=== PATIENT | male | born 2000 | race Caucasian/White ===

== ENCOUNTER 2020-08-20 16:44 | Emergency (ER) | payer MEDICAID ==
[2020-08-20] MEDS ORDERED: ONDANSETRON ODT 4 MG TABLET TL STA (17:04)
[2020-08-20 18:02] LABS: BASOPHILS % (AUTO) 0.2 %; EOSINOPHILS % (AUTO) 0.2 %; HCT - HEMATOCRIT 46.1 % (42.0-52.0); LYMPHOCYTES # (AUTO) 1.1 10^3/uL (1.5-3.5); LYMPHOCYTES % (AUTO) 8.9 %; MEAN CORPUSCULAR HEMOGLOBIN 30.1 pg (27.0-31.0); MEAN CORPUSCULAR HGB CONC 34.7 g/dL (32.0-36.0); MEAN CORPUSCULAR VOLUME 86.7 fL (80.0-94.0); MEAN PLATELET VOLUME 9.4 fL (7.4-11.4); MONOCYTES # (AUTO) 1.1 10^3/uL (0.0-1.0); NEUTROPHILS # (AUTO) 10.1 10^3/uL (1.5-6.6); NEUTROPHILS % (AUTO) 81.2 %; PLT - PLATELET COUNT 174 10^3/uL (130-450); RED BLOOD COUNT 5.32 10^6/uL (4.70-6.10); RED CELL DISTRIBUTION WIDTH 12.1 % (12.0-15.0); WHITE BLOOD COUNT 12.4 x10^3/uL (4.8-10.8)
[2020-08-20 18:14] LABS: ALBUMIN 4.4 g/dL (3.2-5.5); ALBUMIN/GLOBULIN RATIO 1.3 (1.0-2.2); BILIRUBIN,TOTAL 0.9 mg/dL (0.2-1.0); CALCIUM 8.9 mg/dL (8.5-10.3); CREATININE 1.1 mg/dL (0.6-1.2); POTASSIUM 3.9 mmol/L (3.5-5.0); TOTAL PROTEIN 7.7 g/dL (6.7-8.2)
[2020-08-20 18:50] LABS: BILIRUBIN,URINE NEGATIVE (NEGATIVE); GLUCOSE, URINE (UA) NEGATIVE (NEGATIVE); KETONES,URINE (UA) 40 mg/dL (NEGATIVE); LEUKOCYTE ESTERASE, URINE NEGATIVE (NEGATIVE); NITRITE,URINE NEGATIVE (NEGATIVE); OCCULT BLOOD,URINE NEGATIVE (NEGATIVE); PROTEIN,URINE TRACE mg/dL (NEGATIVE); UROBILINOGEN,URINE 0.2 (NORMAL) E.U./dL (NORMAL)
[2020-08-20 18:55] LABS: CLARITY,URINE CLEAR (CLEAR)
--- NOTE | 2020-08-20 21:06 | ED Physician Documentation ---
History of Present Illness - Stated complaint Stated Complaint: ABD PX,DRY HEAVING - Chief complaint Chief Complaint: Abd Pain - History obtained from History obtained from: Patient, Family - History of Present Illness Timing: Today Pain level max: 6 Pain level now: 1 - Additonal information Additional information: Patient is a 19-year-old male who presents to the emergency department with diarrhea since yesterday. He states that he had lower abdominal cramping today but nothing made it better or worse. Some nausea but no vomiting. No fevers. No chills. He states that he does not know if he has been around anyone else that has been sick recently. No recent travel. No bad food exposure that he is aware of. Review of Systems Constitutional: denies: Fever, Chills GI: reports: Diarrhea. denies: Vomiting Skin: denies: Rash Musculoskeletal: denies: Neck pain, Back pain Neurologic: denies: Headache PD PAST MEDICAL HISTORY - Past Medical History Past Medical History: No - Past Surgical History Past Surgical History: No - Present Medications Home Medications: Ambulatory Orders Medication Instructions Recorded Confirmed Ondansetron Odt [Zofran] 4 mg TL Q6H PRN #10 tablet 08/20/20 - Allergies Allergies/Adverse Reactions: Allergies Allergy/AdvReac Type Severity Reaction Status Date / Time No Known Drug Allergies Allergy Verified 08/20/20 17:28 - Living Situation Living Situation: reports: With family Living Arrangement: reports: At home - Social History Does the pt smoke?: No Does the pt drink ETOH?: No Does the pt have substance abuse?: No PD ED PE NORMAL - Vitals Vital signs reviewed: Yes - General General: Alert and oriented X 3, No acute distress, Well developed/nourished - HEENT HEENT: PERRL, Moist mucous membranes - Neck Neck: Supple, no meningeal sign - Cardiac Cardiac: RRR, Strong equal pulses - Respiratory Respiratory: No respiratory distress, Clear bilaterally - Abdomen Abdomen: Normal bowel sounds, Soft, Non tender, Non distended - Back Back: No spinal TTP - Derm Derm: Warm and dry - Extremities Extremities: No edema - Neuro Neuro: Alert and oriented X 3 - Psych Psych: Normal mood, Normal affect Results - Vitals Vitals: Vital Signs - 24 hr 08/20/20 08/20/20 08/20/20 17:24 18:33 20:55 Temperature 37.2 C 37.3 C Heart Rate 94 97 Respiratory 16 16 16 Rate Blood Pressure 128/62 118/70 O2 Saturation 100 100 08/20/20 21:13 Temperature Heart Rate 97 Respiratory 15 Rate Blood Pressure 124/86 H O2 Saturation 99 Oxygen O2 Source Room air - Labs Labs: Laboratory Tests 08/20/20 08/20/20 08/20/20 17:29 17:52 17:52 WBC 12.4 H RBC 5.32 Hgb 16.0 Hct 46.1 MCV 86.7 MCH 30.1 MCHC 34.7 RDW 12.1 Plt Count 174 MPV 9.4 Neut # (Auto) 10.1 H Lymph # (Auto) 1.1 L [place] # (Auto) 1.1 H Eos # (Auto) 0.0 Baso # (Auto) 0.0 Absolute Nucleated RBC 0.00 Nucleated RBC % 0.0 Sodium 133 L Potassium 3.9 Chloride 99 L Carbon Dioxide 26 Anion Gap 8.0 BUN 14 Creatinine 1.1 Estimated GFR (MDRD) 86 L Glucose 108 H Calcium 8.9 Total Bilirubin 0.9 AST 14 ALT 13 Alkaline Phosphatase 60 Total Protein 7.7 Albumin 4.4 Globulin 3.3 Albumin/Globulin Ratio 1.3 Lipase 23 Urine Color YELLOW Urine Clarity CLEAR Urine pH 6.0 Ur Specific [place] >=1.030 H Urine Protein TRACE Urine Glucose (UA) NEGATIVE Urine Ketones 40 H Urine Occult Blood NEGATIVE Urine Nitrite NEGATIVE Urine Bilirubin NEGATIVE Urine Urobilinogen 0.2 (NORMAL) Ur Leukocyte Esterase NEGATIVE Ur Microscopic Review NOT INDICATED Urine Culture Comments NOT INDICATED PD MEDICAL DECISION MAKING - ED course Complexity details: reviewed results, re-evaluated patient, considered differential, d/w patient ED course: No further diarrhea in the emergency department. Patient is very well- appearing, nontoxic. Afebrile. Abdomen is soft, nontender nondistended. Pain resolved in the emergency department. We will have him follow-up with his doctor for further care. Likely a viral diarrheal illness. Patient and family counseled regarding signs and symptoms for which I believe and urgent re- evaluation would be necessary. Patient with good understanding of and agreement to plan and is comfortable going home at this time This document was made in part using voice recognition software. While efforts are made to proofread this document, sound alike and grammatical errors may occur. Departure - Departure Disposition: 01 Home, Self Care Clinical Impression: Abdominal pain Qualifiers: Abdominal location: unspecified location Qualified Code(s): R10.9 - Unspecified abdominal pain Diarrhea Qualifiers: Diarrhea type: unspecified type Qualified Code(s): R19.7 - Diarrhea, unspecified Condition: Good Instructions: ED Diarrhea Viral, ED Diet Vomiting Diarrhea Follow-Up: your,doctor if not better in 1 week [Other] Prescriptions: Ondansetron Odt [Zofran] 4 mg TL Q6H PRN #10 tablet PRN Reason: Nausea / Vomiting Comments: Drink plenty of fluids. Return if you worsen. This should improve over the next 2-3 days. Forms: Activity restrictions Discharge Date/Time: 08/20/20 21:21
[2020-08-20 21:16] VITALS: BP 124/86
== END 2020-08-20 21:21 | disposition home or self-care (01) ==
LOC: ED 16:44
DX: R10.9 Unspecified abdominal pain (principal); R19.7 Diarrhea, unspecified
CPT/HCPCS: 36415; 80053; 81001; 81003; 83690; 85025; 87086; 99283; 99284

== ENCOUNTER 2020-08-22 11:10 | Emergency (ER) | payer MEDICAID ==
[2020-08-22 11:52] LABS: BASOPHILS % (AUTO) 0.2 %; EOSINOPHILS % (AUTO) 0.2 %; HCT - HEMATOCRIT 44.8 % (42.0-52.0); HGB - HEMOGLOBIN 15.6 g/dL (14.0-18.0); LYMPHOCYTES % (AUTO) 11.6 %; MEAN CORPUSCULAR HEMOGLOBIN 29.9 pg (27.0-31.0); MEAN CORPUSCULAR HGB CONC 34.8 g/dL (32.0-36.0); MEAN PLATELET VOLUME 9.2 fL (7.4-11.4); MONOCYTES # (AUTO) 0.9 10^3/uL (0.0-1.0); NEUTROPHILS # (AUTO) 6.4 10^3/uL (1.5-6.6); NEUTROPHILS % (AUTO) 76.9 %; PLT - PLATELET COUNT 184 10^3/uL (130-450); RED BLOOD COUNT 5.21 10^6/uL (4.70-6.10); RED CELL DISTRIBUTION WIDTH 11.9 % (12.0-15.0); WHITE BLOOD COUNT 8.4 x10^3/uL (4.8-10.8)
[2020-08-22 12:07] LABS: ALBUMIN 4.2 g/dL (3.2-5.5); ALBUMIN/GLOBULIN RATIO 1.4 (1.0-2.2); BILIRUBIN,TOTAL 0.7 mg/dL (0.2-1.0); CALCIUM 9.1 mg/dL (8.5-10.3); CREATININE 1.1 mg/dL (0.6-1.2); POTASSIUM 3.4 mmol/L (3.5-5.0); TOTAL PROTEIN 7.2 g/dL (6.7-8.2)
[2020-08-22 13:02] LABS: BILIRUBIN,URINE NEGATIVE (NEGATIVE); GLUCOSE, URINE (UA) NEGATIVE (NEGATIVE); KETONES,URINE (UA) 15 mg/dL (NEGATIVE); LEUKOCYTE ESTERASE, URINE NEGATIVE (NEGATIVE); NITRITE,URINE NEGATIVE (NEGATIVE); OCCULT BLOOD,URINE NEGATIVE (NEGATIVE); PROTEIN,URINE NEGATIVE (NEGATIVE); UROBILINOGEN,URINE 0.2 (NORMAL) E.U./dL (NORMAL)
[2020-08-22 13:13] LABS: CLARITY,URINE CLEAR (CLEAR)
[2020-08-22] MEDS ORDERED: DICYCLOMINE 10 MG CAPSULE PO STA (13:23)
[2020-08-22] MEDS ORDERED: SODIUM CHLORIDE 0.9% 1,000 ML IV STA (13:23)
--- NOTE | 2020-08-22 13:24 | ED Physician Documentation ---
PD HPI ABD PAIN - Stated complaint Stated Complaint: ABDOMINAL PX - Chief complaint Chief Complaint: Abd Pain - History obtained from History obtained from: Patient - Additional information Additional information: Previously healthy 19-year-old gentleman arrives accompanied by his father for abdominal issues going on for the last 4 days. Started on 18 August. On the first day he had abdominal cramps, diarrhea, nausea. The nausea has abated. He also had fevers and chills the first day, not since. Really was bothering him now as the cramps and less of the diarrhea. No recent travel but [place]. No sick contacts. Review of Systems Ten Systems: 10 systems reviewed and negative Constitutional: reports: Fever (gone), Chills (gone). denies: Myalgias Nose: denies: Rhinorrhea / runny nose Throat: denies: Sore throat PD PAST MEDICAL HISTORY - Past Medical History Cardiovascular: None Respiratory: None Neuro: None Endocrine/Autoimmune: None GI: None : None HEENT: None Psych: None Musculoskeletal: None Derm: None - Past Surgical History Past Surgical History: No - Present Medications Home Medications: Ambulatory Orders Medication Instructions Recorded Confirmed Ondansetron Odt [Zofran] 4 mg TL Q6H PRN #10 tablet 08/20/20 Azithromycin [Zithromax] 2 tab PO DAILY #6 tablet 08/22/20 Dicyclomine [Bentyl] 1 - 2 tab PO QID PRN #20 cap 08/22/20 - Allergies Allergies/Adverse Reactions: Allergies Allergy/AdvReac Type Severity Reaction Status Date / Time No Known Drug Allergies Allergy Verified 08/22/20 11:25 - Social History Does the pt smoke?: No Smoking Status: Never smoker Does the pt drink ETOH?: No Does the pt have substance abuse?: No - Immunizations Immunizations are current?: Yes - POLST Patient has POLST: No PD ED PE NORMAL - Vitals Vital signs reviewed: Yes - General General: Alert and oriented X 3, No acute distress - HEENT HEENT: Pharynx benign - Cardiac Cardiac: RRR, No murmur - Respiratory Respiratory: No respiratory distress, Clear bilaterally - Abdomen Abdomen: Normal bowel sounds, Soft, Non tender - Derm Derm: Normal color, Warm and dry - Neuro Neuro: Alert and oriented X 3 Results - Vitals Vitals: Vital Signs - 24 hr 08/22/20 11:23 Temperature 36.9 C Heart Rate 98 Respiratory 18 Rate Blood Pressure 122/75 O2 Saturation 100 Oxygen O2 Source Room air - Labs Labs: Laboratory Tests 08/22/20 08/22/20 08/22/20 11:45 11:45 12:57 WBC 8.4 RBC 5.21 Hgb 15.6 Hct 44.8 MCV 86.0 MCH 29.9 MCHC 34.8 RDW 11.9 L Plt Count 184 MPV 9.2 Neut # (Auto) 6.4 Lymph # (Auto) 1.0 L [place] # (Auto) 0.9 Eos # (Auto) 0.0 Baso # (Auto) 0.0 Absolute Nucleated RBC 0.00 Nucleated RBC % 0.0 Sodium 136 Potassium 3.4 L Chloride 101 Carbon Dioxide 26 Anion Gap 9.0 BUN 8 Creatinine 1.1 Estimated GFR (MDRD) 86 L Glucose 174 H Calcium 9.1 Total Bilirubin 0.7 AST 14 ALT 12 Alkaline Phosphatase 52 Total Protein 7.2 Albumin 4.2 Globulin 3.0 Albumin/Globulin Ratio 1.4 Lipase 24 Urine Color YELLOW Urine Clarity CLEAR Urine pH 6.0 Ur Specific [place] 1.020 Urine Protein NEGATIVE Urine Glucose (UA) NEGATIVE Urine Ketones 15 H Urine Occult Blood NEGATIVE Urine Nitrite NEGATIVE Urine Bilirubin NEGATIVE Urine Urobilinogen 0.2 (NORMAL) Ur Leukocyte Esterase NEGATIVE Ur Microscopic Review NOT INDICATED Urine Culture Comments NOT INDICATED - Rads (name of study) CT A/P Radiology: EMP read contemporaneously PD MEDICAL DECISION MAKING - ED course ED course: 18-year-old presents with nausea, fevers, and diarrhea and cramps. He has "bounced back" from visit 2 days ago without much improvement. His white count is normal. Exam is benign. CT the abdomen pelvis concerning for either infectious proctitis, less likely inflammatory bowel disease. The history is more consistent with an infectious etiology. 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 He was able to produce a stool sample here which we will check for the usual pathogens. We will trial some azithromycin for presumed bacterial enteritis but colonoscopy would be warranted if symptoms are persistent despite that. Departure - Departure Disposition: 01 Home, Self Care Clinical Impression: Vomiting, Diarrhea Condition: Good Record reviewed to determine appropriate education?: Yes Instructions: ED Gastroenteritis Report Pend Prescriptions: Dicyclomine [Bentyl] 1 - 2 tab PO QID PRN #20 cap PRN Reason: Abdominal Pain Azithromycin [Zithromax] 2 tab PO DAILY #6 tablet Comments: As discussed, the symptoms and CT are suggestive probably of an infectious colitis such as Salmonella, Campylobacter or something of those ilk. The antibiotic should help with that and we are culturing your stool. If a causative bacterial isolate is identified we will call you and likely the health department to. Return for new or worsening symptoms. If symptoms are persistent despite the antibiotics, especially if a bacterial isolate is not found, you will need to talk with your primary care physician about referral for colonoscopy. You have a stool culture pending. We will call with a positive result, the fastest way to get a negative result for confirmation though is to go to the hospital website at [email or web address], click on the my [employer] tab and sign up for the patient portal. Forms: Activity restrictions
[2020-08-22] MEDS ORDERED: IOVERSOL 320 100 ML VIAL IVP ONE ×2 (14:07→17:08)
--- NOTE | 2020-08-22 15:43 | CT Report ---
PROCEDURE: Abdomen/Pelvis W INDICATIONS: IV only, low abd pain CONTRAST: IV CONTRAST: Optiray 320 ml: 1.1 PO CONTRAST: *NO PO CONTRAST TECHNIQUE: After the administration of intravenous contrast, 5 mm thick sections acquired from the diaphragms to the symphysis. 5 mm thick coronal and sagittal reformats were acquired. For radiation dose reducti on, the following was used: automated exposure control, adjustment of mA and/or kV according to sumanth ent size. COMPARISON: None. FINDINGS: Image quality: Excellent. ABDOMEN: Lung bases: Lung bases are clear. Heart size is normal. Solid organs: Liver and spleen are normal in size and enhancement. Gallbladder is normal Biliary s ystem is non dilated. Pancreas enhances normally. No adrenal nodules. Kidneys demonstrate normal s ize and enhancement, without hydronephrosis. Peritoneum and bowel: The small bowel is decompressed with no wall thickening. In the very distal sig moid colon and rectum there is diffuse wall thickening with adjacent fat stranding. There is also sai e mucosal edema involving the segments of the bowel. There is perirectal phlegmonous change adjacent to the mid and distal rectum just above the anal verge. Nodes and vessels: No retroperitoneal or mesenteric adenopathy by size criteria. Aorta and inferior vena cava are normal in size. Miscellaneous: No ventral hernias. PELVIS: Genitourinary: Bladder wall thickness is normal. Miscellaneous: No inguinal hernias or adenopathy. Bones: No suspicious bony lesions. No vertebral body compression fractures. IMPRESSION: Inflammatory findings of the distal sigmoid colon and rectum. Findings are favored to be infectious p roctitis with some involvement of the distalmost sigmoid colon, although inflammatory bowel disease s uch as Crohn's disease or ulcerative colitis should be excluded. Reviewed by: Damian Romo MD on 08/22/2020 3:42 PM PDT Approved by: Damian Romo MD on 08/22/2020 3:42 PM PDT Station ID: [id number]
[2020-08-22 16:15] VITALS: BP 122/81
== END 2020-08-22 16:15 | disposition home or self-care (01) ==
LOC: ED 11:10
DX: R19.7 Diarrhea, unspecified (principal); R11.10 Vomiting, unspecified
CPT/HCPCS: 36415; 74177; 80053; 81003; 81599; 83690; 85025; 96360; 99283; 99284; A9270; Q9967; 81001; 87045; 87046; 87086

== ENCOUNTER 2021-08-13 12:38 | Outpatient (CLI) | payer MEDICAID | END 2021-08-13 12:39 | disposition EMS.NT | LOC: EMS 12:38 | DX: M25.511 Pain in right shoulder (principal); S01.81XA Laceration without foreign body of other part of head, initial encounter; Y04.8XXA Assault by other bodily force, initial encounter ==

== ENCOUNTER 2021-08-13 13:48 | Emergency (ER) | payer MEDICAID ==
[2021-08-13] MEDS ORDERED: ONDANSETRON 4 MG/2 ML VIAL IVP STA (14:04)
[2021-08-13] MEDS ORDERED: LIDOCAINE-EPINEPH-TETRACAINE 3 ML SYRINGE TOP STA (14:04)
[2021-08-13] MEDS ORDERED: MORPHINE 2 MG/ML CARPUJECT IVP STA (14:05)
[2021-08-13] MEDS ORDERED: TETANUS/DIPHTHERIA/PERTUSSIS 0.5 ML SYRINGE IM ONE (14:16)
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
[2021-08-13] MEDS ORDERED: PROPOFOL 200 MG/20 ML VIAL IVP STA (14:33)
--- NOTE | 2021-08-13 15:34 | XRAY Report ---
PROCEDURE: Shoulder 2 View RT INDICATIONS: shoulder injury TECHNIQUE: 2 views of the shoulder were acquired. COMPARISON: 11/13/2021 at 1400 hours. FINDINGS: Bones: Right shoulder anterior dislocation has been reduced. No sites fracture of the right humerus. No suspicious bony lesions. Visualized ribs appear intact. Soft tissues: No suspicious soft tissue calcifications. IMPRESSION: Reduced right shoulder anterior dislocation. Proximal right humerus Hill-Sachs fracture. Reviewed by: Gladys Velásquez MD, PhD on 08/13/2021 3:33 PM PDT Approved by: Gladys Velásquez MD, PhD on 08/13/2021 3:33 PM PDT Station ID: [id number]
--- NOTE | 2021-08-13 15:42 | XRAY Report ---
PROCEDURE: Shoulder 3 View RT INDICATIONS: shoulder inj TECHNIQUE: 3 views of the shoulder were acquired. COMPARISON: None. FINDINGS: Bones: Anterior dislocation of the right humerus. No fractures . No suspicious bony lesions. Visua lized ribs appear intact. Soft tissues: No suspicious soft tissue calcifications. IMPRESSION: Anterior right shoulder dislocation. Reviewed by: Gladys Velásquez MD, PhD on 08/13/2021 3:41 PM PDT Approved by: Gladys Velásquez MD, PhD on 08/13/2021 3:41 PM PDT Station ID: [id number]
[2021-08-13 16:13] VITALS: BP 113/72
== END 2021-08-13 16:12 | disposition home or self-care (01) ==
LOC: ED 13:48 → MERGE 13:48 → ED 16:12
DX: S01.01XA Laceration without foreign body of scalp, initial encounter (principal); S43.004A Unspecified dislocation of right shoulder joint, initial encounter; Y04.2XXA Assault by strike against or bumped into by another person, initial encounter; Y92.830 Public park as the place of occurrence of the external cause
CPT/HCPCS: 12001; 23650; 90471; 94770; 99152; 99282

== ENCOUNTER 2021-08-24 16:25 | Emergency (ER) | payer MEDICAID ==
[2021-08-24 16:55] VITALS: BP 117/90
--- NOTE | 2021-08-24 17:13 | ED Physician Documentation ---
PD HPI WOUND RECHECK - Stated complaint Stated Complaint: STAPLE REMOVAL FROM HEAD - Chief complaint Chief Complaint: Wound - Histroy obtained from History obtained from: Patient (20-year-old is here for occipital scalp staple removal. He has not had any complications. The shoulder is healing well as well.) Review of Systems Constitutional: reports: Reviewed and negative Nose: reports: Reviewed and negative Throat: reports: Reviewed and negative PD PAST MEDICAL HISTORY - Past Medical History Cardiovascular: None Respiratory: None Neuro: None Endocrine/Autoimmune: None GI: None : None HEENT: None Psych: None Musculoskeletal: None Derm: None - Past Surgical History Past Surgical History: No - Present Medications Home Medications: Ambulatory Orders Medication Instructions Recorded Confirmed Ondansetron Odt [Zofran] 4 mg TL Q6H PRN #10 tablet 08/20/20 Azithromycin [Zithromax] 2 tab PO DAILY #6 tablet 08/22/20 Dicyclomine [Bentyl] 1 - 2 tab PO QID PRN #20 cap 08/22/20 - Allergies Allergies/Adverse Reactions: Allergies Allergy/AdvReac Type Severity Reaction Status Date / Time bee venom protein (honey bee) Allergy Respiratory Verified 08/24/21 16:55 - Social History Does the pt smoke?: No Smoking Status: Never smoker Does the pt drink ETOH?: No Does the pt have substance abuse?: No - Immunizations Immunizations are current?: Yes - POLST Patient has POLST: No PD ED PE NORMAL - Vitals Vital signs reviewed: Yes - General General: Alert and oriented X 3, No acute distress - HEENT HEENT: Other (Healing laceration to the right side of occiput with [address] removed during exam without issue.) - Neck Neck: Supple, no meningeal sign, No bony TTP - Neuro Neuro: Alert and oriented X 3, Normal speech Results - Vitals Vitals: Vital Signs - 24 hr 08/24/21 16:49 Temperature 37.2 C Heart Rate 87 Respiratory 16 Rate Blood Pressure 117/90 H O2 Saturation 98 Oxygen O2 Source Room air Departure - Departure Disposition: 01 Home, Self Care Clinical Impression: Removal of staple Condition: Stable
== END 2021-08-24 17:13 | disposition home or self-care (01) ==
LOC: ED 16:25
DX: S01.01XD Laceration without foreign body of scalp, subsequent encounter (principal); X58.XXXD Exposure to other specified factors, subsequent encounter
CPT/HCPCS: 99281